=== PATIENT | female | born 2000 | race Caucasian/White ===

== ENCOUNTER 2023-01-02 23:32 | Emergency (ER) | payer BC ==
[~2023-01-02] VITALS: Ht 157.5 cm; Wt 104.3 kg
[2023-01-02 23:36] VITALS: BP_SYST 118
[2023-01-03] MEDS ORDERED: IBUP-1970 PO (00:56)
[2023-01-03] MEDS ORDERED: ACET-2634 PO (00:56)
[2023-01-03] MEDS ORDERED: KETOROLAC TROMETHAMINE 30 MG VIAL IM ONE (01:00)
[2023-01-03 01:32] VITALS: BP_SYST 141
== END 2023-01-03 01:32 | disposition home or self-care (01) ==
LOC: SED 23:32
DX: B34.9 Viral infection, unspecified (principal); R11.2 Nausea with vomiting, unspecified; H92.01 Otalgia, right ear; Z20.822 Contact with and (suspected) exposure to COVID-19; Z88.8 Allergy status to other drugs, medicaments and biological substances
CPT/HCPCS: 99283; 87426; 87804 ×2; 96372; J1885; 36415

== ENCOUNTER 2023-04-15 01:39 | Emergency (ER) | payer BC ==
[~2023-04-15] VITALS: Ht 157.5 cm; Wt 104.3 kg
[~2023-04-15 01:39] MED LIST: ACET-2634 PO; IBUP-1970 PO
[2023-04-15 01:55] VITALS: BP_SYST 126; PULSE 89; RESP 19; TEMP 97.9; O2SAT 99
[2023-04-15] MEDS ORDERED: ONDA8TAB60 PO (02:07)
[2023-04-15] MEDS ORDERED: IBUP-1971 PO (02:07)
[2023-04-15] MEDS ORDERED: KETOROLAC TROMETHAMINE 60 MG/2 ML VIAL IM ONE (02:15)
[2023-04-15] MEDS ORDERED: ONDANSETRON 4 MG ODT TAB PO ONE (02:15)
[2023-04-15 02:39] VITALS: BP_SYST 120; PULSE 92; RESP 20; TEMP 98; O2SAT 99
== END 2023-04-15 02:39 | disposition home or self-care (01) ==
LOC: SED 01:39
DX: R10.11 Right upper quadrant pain (principal); R19.7 Diarrhea, unspecified; R11.2 Nausea with vomiting, unspecified; Z88.8 Allergy status to other drugs, medicaments and biological substances; Z79.899 Other long term (current) drug therapy
CPT/HCPCS: 99283; 96372; Q0162; J1885

== ENCOUNTER 2023-05-19 21:03 | Emergency (ER) | payer OTHER, BC ==
[~2023-05-19] VITALS: Ht 160 cm; Wt 106.6 kg
[~2023-05-19 21:03] MED LIST changes: +IBUP-1971 PO; +ONDA8TAB60 PO
[2023-05-19 22:14] VITALS: BP_SYST 140; PULSE 90; RESP 19; TEMP 97.4; O2SAT 99
[2023-05-19] MEDS ORDERED: ONDANSETRON 4 MG ODT TAB ONE (22:28)
[2023-05-19] MEDS ORDERED: ACETAMINOPHEN 325 MG TABLET PO ONE (22:30)
[2023-05-19] MEDS ORDERED: ONDANSETRON 4 MG ODT TAB PO ONE (23:00)
[2023-05-19] MEDS ORDERED: LORazepam 1 MG TABLET PO ONE (23:15)
[2023-05-19] MEDS ORDERED: CYCL10TA24 PO (23:37)
[2023-05-19 23:55] VITALS: BP_SYST 135; PULSE 78; RESP 19; TEMP 96.9; O2SAT 99
== END 2023-05-19 23:57 | disposition home or self-care (01) ==
LOC: SED 21:03
DX: S13.4XXA Sprain of ligaments of cervical spine, initial encounter (principal); S00.03XA Contusion of scalp, initial encounter; F41.9 Anxiety disorder, unspecified; R42 Dizziness and giddiness; R11.2 Nausea with vomiting, unspecified; H53.8 Other visual disturbances; Z88.8 Allergy status to other drugs, medicaments and biological substances; Z79.899 Other long term (current) drug therapy; V49.40XA Driver injured in collision with unspecified motor vehicles in traffic accident, initial encounter; Y93.89 Activity, other specified; Y92.89 Other specified places as the place of occurrence of the external cause; Y99.8 Other external cause status
CPT/HCPCS: 99284; 70450; 72125; 76376; 81025; Q0162

== ENCOUNTER 2023-12-22 01:17 | Emergency (ER) | payer BC, OTHER ==
[~2023-12-22] VITALS: Ht 162.6 cm; Wt 108.9 kg
[~2023-12-22 01:17] MED LIST changes: +CYCL10TA24 PO
[2023-12-22 01:30] VITALS: BP_SYST 126; PULSE 71; RESP 20; TEMP 97; O2SAT 98
[2023-12-22 02:30] LABS: BILIRUBIN,URINE NEGATIVE (NEGATIVE); BLOOD, URINE 1+ (NEGATIVE); CLARITY/URINE CLEAR (CLEAR); COLOR,URINE YELLOW (YELLOW); GLUCOSE,URINE NEGATIVE (NEGATIVE); KETONES,URINE NEGATIVE (NEGATIVE); LEUKOCYTE ESTERASE ,URINE 1+ (NEGATIVE); NITRITE, URINE NEGATIVE (NEGATIVE); PROTEIN URINE NEGATIVE (NEGATIVE); UROBILINOGEN,URINE 0.2 (0.2-1.0)
[2023-12-22] MEDS ORDERED: CIPR500T5 PO (02:59)
[2023-12-22] MEDS ORDERED: PHEN-726 PO (02:59)
[2023-12-22] MEDS: KETOROLAC TROMETHAMINE 60 MG/2 ML VIAL IM ONE (03:03)
[2023-12-22] MEDS: cefTRIAXone 1 GM in LIDOCAINE 1%, 20 ML MDV 2.1 ML IM ONE (03:09)
[2023-12-22 03:34] LABS: BACTERIA,URINE FEW /HPF (None Seen)
[2023-12-22 03:38] VITALS: BP_SYST 135; PULSE 82; RESP 18; TEMP 97.1; O2SAT 98
== END 2023-12-22 03:38 | disposition home or self-care (01) ==
LOC: SED 01:17
DX: N39.0 Urinary tract infection, site not specified (principal); R30.9 Painful micturition, unspecified; R35.0 Frequency of micturition; E11.9 Type 2 diabetes mellitus without complications; Z88.8 Allergy status to other drugs, medicaments and biological substances; Z79.899 Other long term (current) drug therapy
CPT/HCPCS: 99284; 81001; 87086; 87186; 81025; 96372; 81000; 81015; J0696; J1885; J2001